=== PATIENT | female | born 1990 | race Caucasian/White ===

== ENCOUNTER 2016-09-05 22:39 | Inpatient (IN) ==
[~2016-09-05 22:39] MED LIST: LR 1,000 ML ONE; STADOL IV PRN; STADOL ONE
[2016-09-05] MEDS: LR 1,000 ML IV SCH (22:39)
[2016-09-05 23:05] LABS: HEMATOCRIT 35.7 % (37.0-47.0); HEMOGLOBIN 12.3 g/dL (12.0-16.0); MCH 31.2 PG (27-31); MCHC 34.5 g/dL (33-37); MCV 90.6 FL (81-99); RBC 3.94 XMIL (4.2-5.4)
[2016-09-05 23:06] LABS: BASO% 0.1 % (0.0-0.8); EOS# 0.07 X1000 (0.0-0.7); EOS% 0.3 % (0.0-10.0); LYMPH# 3.65 X1000 (1.2-3.4); LYMPH% 15.2 % (20.5-51.1); MANUAL DIFF NEEDED? YES; MONO# 1.82 X1000 (0.11-0.59); MONO% 7.6 % (1.7-9.3); MPV 11.9 FL (7.4-10.4); NEUT% 76.3 % (42.2-75.2); PLT 197 X1000 (130-400)
[2016-09-05 23:07] LABS: URINE SOURCE VOIDED
[2016-09-05 23:08] LABS: BANDS 1 % (0-1); LYMPHS 14 % (21-51); MONO 7 % (1-9)
[2016-09-05 23:20] LABS: BILIRUBIN URINE NEGATIVE (NEGATIVE); BLOOD URINE NEGATIVE (NEGATIVE); CLARITY SL. CLOUDY (CLEAR); COLOR YELLOW; GLUCOSE URINE NEGATIVE (NEGATIVE); LEUKOCYTES URINE 2+ (NEGATIVE); NITRITE URINE NEGATIVE (NEGATIVE); PH URINE 6.5; PROTEIN URINE NEGATIVE (NEGATIVE); SP GRAVITY URINE 1.015; UROBILINOGEN URINE NORMAL
[2016-09-05] MEDS ORDERED: TYLENOL PO PRN (23:27)
[2016-09-05] MEDS ORDERED: ZOFRAN IV PRN (23:27)
[2016-09-05] MEDS ORDERED: STADOL IV PRN (23:27)
[2016-09-05] MEDS ORDERED: PEPCID IV PRN (23:27)
[2016-09-05] MEDS ORDERED: KEFZOL 1 GM/D5W 1 GM/50 ML IVPB IV PRN (23:27)
[2016-09-05] MEDS ORDERED: PEPCID PO PRN (23:27)
[2016-09-05] MEDS ORDERED: REGLAN PO ONE (23:27)
[2016-09-05] MEDS ORDERED: LR 1,000 ML IV SCH (23:27)
[2016-09-05] MEDS ORDERED: PEPCID PO ONE (23:27)
[2016-09-05] MEDS ORDERED: SODIUM CHLORIDE 0.9% INJ SCH (23:30)
[2016-09-06] MEDS ORDERED: MARCAINE 0.25% PF ONE (00:43)
[2016-09-06] MEDS ORDERED: XYLOCAINE-MPF 1% 0 ML ONE (00:43)
[2016-09-06] MEDS ORDERED: FENTANYL-BUPIV-NS 2 MCG-0.1% 0 ML ONE (00:43)
[2016-09-06] MEDS ORDERED: MINERAL OIL ONE (00:43)
[2016-09-06] MEDS ORDERED: XYLOCAINE-MPF 2% ONE (00:43)
[2016-09-06] MEDS ORDERED: XYLOCAINE-MPF 1% ONE (00:43)
[2016-09-06] MEDS ORDERED: PITOCIN 30 UNITS/LR 30 UNITS/500 ML IV.SOLN ONE (00:44)
[2016-09-06] MEDS ORDERED: AMBIEN PO PRN (01:55)
[2016-09-06] MEDS ORDERED: BOOSTRIX VACCINE IM ONE (01:55)
[2016-09-06] MEDS ORDERED: BENADRYL IV PRN (01:55)
[2016-09-06] MEDS ORDERED: HYDROXYZINE PO PRN (01:55)
[2016-09-06] MEDS ORDERED: PITOCIN IM PRN (01:55)
[2016-09-06] MEDS ORDERED: XYLOCAINE-MPF 1% INJ PRN (01:55)
[2016-09-06] MEDS ORDERED: BENADRYL PO PRN (01:55)
[2016-09-06] MEDS ORDERED: PITOCIN 30 UNITS/LR 30 UNITS/500 ML IV.SOLN IV ONE (01:55)
[2016-09-06] MEDS ORDERED: PITOCIN 20 UNITS/LR 20 UNITS/1,000 ML IV.SOLN IV SCH (01:55)
[2016-09-06] MEDS ORDERED: CYTOTEC PO PRN (01:55)
[2016-09-06] MEDS ORDERED: MINERAL OIL PO PRN (01:55)
[2016-09-06] MEDS ORDERED: HYDROXYZINE IM PRN (01:55)
[2016-09-06] MEDS ORDERED: NORCO-5 PO PRN (01:55)
[2016-09-06] MEDS ORDERED: M-M-R II VACCINE SUBQ ONE (01:55)
[2016-09-06] MEDS ORDERED: PERI MEDS (DERMOPLAST/NUPERCAINAL/TUCKS) MISC PRN (01:55)
[2016-09-06] MEDS ORDERED: PITOCIN 20 UNITS/LR 20 UNITS/1,000 ML IV.SOLN ONE (02:01)
[2016-09-06] MEDS ORDERED: FENTANYL-BUPIV-NS 2 MCG-0.1% 200 ML EPIDURAL PRN (02:38)
[2016-09-06] MEDS: NORCO-10 PO PRN ×3 (02:53→20:15)
[2016-09-06] MEDS: LR 1,000 ML IV SCH (05:23)
[2016-09-06] MEDS ORDERED: PITOCIN 30 UNITS/LR 30 UNITS/500 ML IV.SOLN IV SCH (06:00)
[2016-09-06] MEDS ORDERED: PERICOLACE PO SCH (21:00)
[2016-09-07 05:45] LABS: HEMOGLOBIN 9.9 g/dL (12.0-16.0); MCH 30.7 PG (27-31); MCV 93.2 FL (81-99); MPV 11.8 FL (7.4-10.4); RBC 3.22 XMIL (4.2-5.4)
[2016-09-07] MEDS: NORCO-10 PO PRN (07:44)
[2016-09-09 05:45] VITALS: BP 108/62
== END 2016-09-07 09:43 | disposition home or self-care (01) ==
LOC: P.OPLD 22:39 → P.LD 22:45
PROVIDERS: ADMIT Obstetrics & Gynecology; ATTEND Obstetrics & Gynecology